=== PATIENT | male | born 1960 | race African-American/Black ===

== ENCOUNTER → 2016-12-30 | Outpatient (CLI) | payer BC | LOC: COL.RAD 11:01 | DX: K59.8 Other specified functional intestinal disorders (principal); N40.0 Benign prostatic hyperplasia without lower urinary tract symptoms | CPT/HCPCS: Q9967 ==

== ENCOUNTER → 2019-09-13 | Outpatient (CLI) | payer BC | LOC: COL.RAD 08:59 | DX: D40.11 Neoplasm of uncertain behavior of right testis (principal); N44.2 Benign cyst of testis ==

== ENCOUNTER 2021-04-23 10:58 | Inpatient (IN) | payer BC ==
[~2021-04-23] VITALS: Ht 177.8 cm; Wt 78.2 kg
[2021-04-23 11:58] LABS: COLLECTION METHOD CLEAN CATCH
[2021-04-23 12:02] LABS: BASO % 0.2 % (0.0-2.0); GRAN # 8.7 K/mm3 (1.4-6.5); GRAN % 87.5 % (42.2-75.2); HEMATOCRIT 37.1 % (42.0-52.0); HEMOGLOBIN 12.2 g/dl (13.5-18.0); LYMPH # 0.9 K/mm3 (1.2-3.4); LYMPH % 8.7 % (20.0-51.0); MEAN CELL VOLUME 92 fl (80.0-100.0); MEAN CORPUSCULAR HEMOGLOBIN 30 pg (27.0-31.0); MEAN CORPUSCULAR HGB CONC 33 g/dl (33.0-37.0); MEAN PLATELET VOLUME 10.8 fl (7.4-10.4); MONO # 0.3 K/mm3 (0.1-0.6); MONO % 3.3 % (1.7-9.3); PLATELET COUNT 274 K/mm3 (130-400); RED BLOOD COUNT 4.03 M/mm3 (4.20-5.60); REDCELL DISTRIBUTION WIDTH-CV 13.9 % (11.5-14.5)
[2021-04-23 12:09] LABS: MUCOUS Present /lpf; PH 5 (5-8); SQUAMOUS EPITHELIAL None Seen /hpf; URINE APPEARANCE Cloudy; URINE BACTERIA Rare /hpf; URINE BILIRUBIN Negative (NEGATIVE); URINE BLOOD 1+ (NEGATIVE); URINE COLOR Yellow; URINE GLUCOSE Negative (NEGATIVE); URINE KETONE Negative (NEGATIVE); URINE LEUKOCYTE ESTERASE Negative (NEGATIVE); URINE NITRATE Negative (NEGATIVE); URINE PROTEIN(semi-quant) 1+ (NEGATIVE); URINE RBC None Seen /hpf; URINE UROBILINOGEN Negative (NEGATIVE)
[2021-04-23 12:23] LABS: ALBUMIN 4.1 gm/dL (3.5-5.0); CALCIUM 9.9 mg/dL (8.4-10.2); CREATININE, serum 1.24 mg/dL (0.72-1.25); TOTAL PROTEIN 7.5 gm/dL (6.2-8.1)
[2021-04-23 17:00] VITALS: BP 119/63; PULSE 102; TEMP 99.1
--- NOTE | 2021-04-23 17:00 | NUR ---
PATIENT IS ADMITED INTO ROOM 344 FROM ER. A&O. NOTED TEMP OF 99.1 AND HR IN THE LOW TO MID 100'S. ALL OTHER VSS. PATIENT REPORTS HE FEELS A LOT BETTER AFTER IV FLUIDS & ABX INTO RIGHT AC IV. PATIENT REPORTS FEVER/CHILLS/DIARRHEA ON ADMIT TO ER. 2-3 LOOST STOOLS, SEE ORDERS FOR STOOL SAMPLE. BLOOD CULTURES PENDING. IV BOLUS LR STARTED PER SEPSIS PROTOCOL. ALSO REPLACING ELECTROLYTES. CT SHOWED INFLAMED BOWL, UNKNOWN GI SOURCE OF SEPSIS. HEAD TO TOE ASSESSMENT COMPLETE. PATIENT'S SISTER AT BEDSIDE. ORIENTED TO ROOM. CALL LIGHT IN REACH.
[2021-04-23 19:04] VITALS: BP 119/66; PULSE 104; TEMP 98.4
--- NOTE | 2021-04-23 20:20 | NUR ---
Pt. sitting up in bed at this time. Pt. is A&OX3, assessment complete. IV to rt. ac patent, IV fluids infusing per orders. Pt. denies pain or other needs, call light within reach.
[2021-04-23 23:13] VITALS: BP 130/68; PULSE 96; TEMP 98.1
[2021-04-24 02:30] LABS: CALCIUM 9.1 mg/dL (8.4-10.2); CREATININE, serum 1.29 mg/dL (0.72-1.25); POTASSIUM 3.7 mmol/L (3.5-4.5)
[2021-04-24 03:16] VITALS: BP 134/73; PULSE 92; TEMP 98.3
--- NOTE | 2021-04-24 05:59 | NUR ---
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 Pharmacy confirmed ok to give together.
[2021-04-24 06:46] LABS: MEAN CELL VOLUME 89 fl (80.0-100.0); MEAN CORPUSCULAR HGB CONC 34 g/dl (33.0-37.0); MEAN PLATELET VOLUME 11.6 fl (7.4-10.4); PLATELET COUNT 208 K/mm3 (130-400); RED BLOOD COUNT 3.16 M/mm3 (4.20-5.60); REDCELL DISTRIBUTION WIDTH-CV 14.3 % (11.5-14.5)
[2021-04-24 06:53] LABS: HEMATOCRIT 28.1 % (42.0-52.0); MEAN CORPUSCULAR HEMOGLOBIN 30 pg (27.0-31.0)
[2021-04-24 06:54] LABS: HEMOGLOBIN 9.5 g/dl (13.5-18.0)
[2021-04-24 07:04] LABS: CALCIUM 9.4 mg/dL (8.4-10.2); CREATININE, serum 1.16 mg/dL (0.72-1.25); POTASSIUM 3.4 mmol/L (3.5-4.5)
[2021-04-24 07:35] VITALS: BP 121/68; PULSE 90; TEMP 95.6
[2021-04-24 07:40] LABS: BAND 42 % (0-10); LYMPHOCYTE 11 % (20.0-51.0); NEUTROPHILS 44 % (42.0-75.2); PLATELET ESTIMATE NORMAL (NORMAL)
--- NOTE | 2021-04-24 07:44 | NUR ---
Patient complains of no pain. Shift assessment completed. Abdomen distended and firm. Patient states he had small BM. AP 90. Lung sound diminished at bases. Ciprofoxacin infusing via IV 100 mls @ 100 mls/hr. IV site to right lower arm shows no signs of redness or swelling. Call light is within reach.
[2021-04-24 09:03] LABS: HEMATOCRIT 28.1 % (42.0-52.0); HEMOGLOBIN 9.5 g/dl (13.5-18.0)
--- NOTE | 2021-04-24 10:35 | NUR ---
Initial visit; Patient thanked [employer] for looking in on him and offering God's blessings and prayer. [employer] will keep patient in her prayers.
[2021-04-24 10:52] VITALS: BP 141/74; PULSE 90; TEMP 98.5
--- NOTE | 2021-04-24 14:50 | NUR ---
SW met with patient to determine d/c plan. Patient reports he is single and lives by himself in [place]. PCP is Dr. Evelyn Momin and he would get his medications from [facility] but at this time he only takes over the counter vitamins. Patient reports being fully indep prior to this event and he has no DME's or 02 needs. salesperson floor coverings is his sister, Deborah, who lives in [place] ([phone]). He does not have an MPOA but would like to look at the form. TASNEEM provided this. D/C Plan: Home
[2021-04-24] MEDS ORDERED: B COMPLEX & B121 TAB (14:53)
[2021-04-24] MEDS ORDERED: EZFE 200200 MG PO (14:53)
[2021-04-24 15:48] VITALS: BP 147/80; PULSE 102; TEMP 101
[2021-04-24] MEDS ORDERED: SLOW FE142 MG PO (16:19)
--- NOTE | 2021-04-24 19:09 | NUR ---
Patient doing well throughout the day, up in room independently with steady gait. Temp this afternoon, tylenol given per orders. Patient states mild discomfort to abdomen though the day, refuses pain meds at this time. Denies additional needs at this time. Will report off to saddle and harness maker.
[2021-04-24 19:10] VITALS: BP 159/93; PULSE 94; TEMP 99.7
--- NOTE | 2021-04-24 20:05 | NUR ---
Pt. sitting up in bed at this time. Pt. is A&OX3, assessment complete. INT to rt. ac patent. Pt. reports abd pain at a 4 on pain scale, gave Tylenol. Pt. denies further needs, call light within reach.
[2021-04-24 22:18] VITALS: BP 147/84; PULSE 80; TEMP 98.1
[2021-04-25 04:08] VITALS: BP 134/81; PULSE 82; TEMP 98.5
[2021-04-25 06:51] LABS: MEAN CELL VOLUME 89 fl (80.0-100.0); MEAN CORPUSCULAR HGB CONC 34 g/dl (33.0-37.0); MEAN PLATELET VOLUME 11.1 fl (7.4-10.4); PLATELET COUNT 206 K/mm3 (130-400); RED BLOOD COUNT 3.05 M/mm3 (4.20-5.60); REDCELL DISTRIBUTION WIDTH-CV 14.5 % (11.5-14.5)
[2021-04-25 06:55] LABS: HEMATOCRIT 27.2 % (42.0-52.0); HEMOGLOBIN 9.2 g/dl (13.5-18.0); MEAN CORPUSCULAR HEMOGLOBIN 30 pg (27.0-31.0)
--- NOTE | 2021-04-25 07:08 | NUR ---
Sitting up in bed. No c/o pain. Ciprofloxacin infusing 200 mg/100 ml in right brachial. No redness or swelling at site. Shift assessment complete. Patient voided dark yellow urine. Encouraged to push fluids. Call light within reach.
[2021-04-25 07:19] VITALS: BP 148/80; PULSE 82; TEMP 98.5
[2021-04-25 07:39] LABS: EOSINOPHIL 1 % (0-4); HYPOCHROMIA 1+; LYMPHOCYTE 17 % (20.0-51.0); NEUTROPHILS 77 % (42.0-75.2)
[2021-04-25 07:41] LABS: CALCIUM 9.6 mg/dL (8.4-10.2); CREATININE, serum 1.06 mg/dL (0.72-1.25); POTASSIUM 3.3 mmol/L (3.5-4.5)
--- NOTE | 2021-04-25 10:00 | NUR ---
pt doing well this morning. He has been up and took a shower. Pt reports overall feeling well. States that his stomach did hurt some after eating, but that Ricardo told him that is normal. He did state that it has since gone away. Pt is independent in the room. has rounded, potential discharge this afternoon if fever free and labs ok
[2021-04-25 10:40] VITALS: BP 143/83; PULSE 90; TEMP 99.1
[2021-04-25] MEDS ORDERED: FLAGYL500 MG PO (10:47)
[2021-04-25] MEDS ORDERED: CIPRO 500MG TA500 MG PO (10:48)
[2021-04-25] MEDS ORDERED: K-DUR20 MEQ PO (10:48)
[2021-04-25 11:28] VITALS: BP 130/77; PULSE 87; TEMP 98.7
--- NOTE | 2021-04-25 13:06 | NUR ---
Follow-up visit; Patient doing well and thanked [employer] for looking in on him again this morning. [employer] continues to keep patient in her prayers.
[2021-04-25 15:52] VITALS: BP 150/84; PULSE 84; TEMP 98.8
--- NOTE | 2021-04-25 16:39 | NUR ---
Pt has continued to do okay. Complains of some pain after eating. Reports that he is still having loose stool. Pt is aware that he will be staying the night. Continue to replace Potassium. Potassium 60 meq being given over 4 hours per pharmacy
[2021-04-25 19:46] VITALS: BP 146/81; PULSE 83; TEMP 99.2
--- NOTE | 2021-04-25 19:51 | NUR ---
REPORTS STILL HAVING LOOSE STOOL "LIKE WATERY" BUT REPORTS NOT HAVING FREQUENT STOOLS PASSED. DENIES ABD PAIN AFTER EATING SUPPER MEAL AT THIS TIME.
--- NOTE | 2021-04-25 20:00 | NUR ---
PATIENT REPORTS PASSING FLATUS WHEN TOILETING/PASSING WATERY STOOL. DENIES NAUSEA AFTER EATING LATE SUPPER MEAL, DENIES ABD PAIN AFTER EATING.
[2021-04-26 00:13] VITALS: BP 148/94; PULSE 78; TEMP 99
[2021-04-26 04:58] VITALS: BP 148/82; PULSE 78; TEMP 98.6
--- NOTE | 2021-04-26 06:58 | NUR ---
Pt doing well this morning, no needs or complaints verbalized, call light within reach
[2021-04-26 07:18] LABS: BASO % 0.3 % (0.0-2.0); EOS # 0.1 K/mm3 (0.0-0.7); EOS % 1.8 % (0-4.0); GRAN # 5.7 K/mm3 (1.4-6.5); GRAN % 72.3 % (42.2-75.2); LYMPH # 1.4 K/mm3 (1.2-3.4); LYMPH % 17.4 % (20.0-51.0); MEAN CELL VOLUME 93 fl (80.0-100.0); MEAN CORPUSCULAR HGB CONC 33 g/dl (33.0-37.0); MEAN PLATELET VOLUME 11.3 fl (7.4-10.4); MONO # 0.6 K/mm3 (0.1-0.6); MONO % 7.7 % (1.7-9.3); PLATELET COUNT 229 K/mm3 (130-400); RED BLOOD COUNT 3.19 M/mm3 (4.20-5.60); REDCELL DISTRIBUTION WIDTH-CV 14.5 % (11.5-14.5)
[2021-04-26 07:20] LABS: HEMATOCRIT 29.7 % (42.0-52.0); HEMOGLOBIN 9.7 g/dl (13.5-18.0); MEAN CORPUSCULAR HEMOGLOBIN 30 pg (27.0-31.0)
[2021-04-26 07:24] VITALS: BP 154/84; PULSE 73; TEMP 98
--- NOTE | 2021-04-26 07:25 | NUR ---
CHANGE OF SHIFT REPORT GIVEN TO DAY SHIFT NURSE, OLESYA AVERY.
[2021-04-26 07:51] LABS: CALCIUM 9.7 mg/dL (8.4-10.2); CREATININE, serum 1.08 mg/dL (0.72-1.25); POTASSIUM 3.4 mmol/L (3.5-4.5)
--- NOTE | 2021-04-26 09:15 | NUR ---
Pt doing well, reports he has not had any more abd pain. Informed him of his potassium level and getting it replaced. Pt is hopeful to get to go home today. No other needs verbalized, call light within reach
[2021-04-26 11:41] VITALS: BP 145/77; PULSE 86; TEMP 98.9
--- NOTE | 2021-04-26 12:05 | NUR ---
Reviewed discharge instructions with pt to include follow up appointment, lab work and prescriptions. Pt verbalized understanding. INT removed from left wrist. Pt awaiting on his sister to arrive to pick him up
--- NOTE | 2021-04-26 12:40 | NUR ---
Reviewed discharge again with sister per request. All questions answered and pt escorted out via wheelchair
== END 2021-04-26 12:41 | disposition home or self-care (01) | DRG 872 ==
LOC: COL.ER 10:58 → SURG 16:10
PROVIDERS: Physician Assistant; ADMIT Family Medicine
DX: A41.9 Sepsis, unspecified organism (principal); E87.0 Hyperosmolality and hypernatremia; R65.20 Severe sepsis without septic shock; I10 Essential (primary) hypertension; D64.9 Anemia, unspecified; E87.6 Hypokalemia; E83.42 Hypomagnesemia; K52.9 Noninfective gastroenteritis and colitis, unspecified; E83.39 Other disorders of phosphorus metabolism; Z20.822 Contact with and (suspected) exposure to COVID-19; Z87.442 Personal history of urinary calculi
CPT/HCPCS: 99223-AI; 99232-AI; 99233-AI; 99239; J0744; J1885; J2270; J2405; J3475; J7030; J7050; J7070; J7120; Q9967

== ENCOUNTER 2023-06-05 12:48 | Emergency (ER) | payer OTHER ==
[~2023-06-05] VITALS: Ht 177.8 cm; Wt 79.5 kg
[~2023-06-05 12:48] MED LIST: ASPIRIN 32325 MG/TAB PO; B COMPLEX & B121 TAB; CIPRO 500MG TA500 MG PO; DULCOLAX STOOL100 MG PO; EZFE 200200 MG PO; FLAGYL500 MG PO; K-DUR20 MEQ PO; LIPITOR 40MG TA40 MG PO; PLAVIX 75MG TAB75 MG PO; PRINIVIL20 MG PO; SLOW FE142 MG PO; VITAMIN D31000 I1 PO; ZYRTEC 10MG10 MG PO
[2023-06-05 13:17] LABS: BASO % 0.3 % (0.0-2.0); EOS % 0.6 % (0.0-4.0); GRAN # 2.9 K/mm3 (1.4-6.5); GRAN % 41.8 % (42.2-75.2); HEMOGLOBIN 10.3 g/dl (13.5-18.0); LYMPH # 3.1 K/mm3 (1.2-3.4); LYMPH % 45.9 % (20.0-51.0); MEAN CELL VOLUME 94 fl (80.0-100.0); MEAN CORPUSCULAR HEMOGLOBIN 31 pg (27-31); MEAN CORPUSCULAR HGB CONC 33 g/dl (33.0-37.0); MEAN PLATELET VOLUME 10.8 fl (7.4-10.4); MONO # 0.8 K/mm3 (0.1-0.6); MONO % 11.1 % (1.7-9.3); PLATELET COUNT 276 K/mm3 (130-400); RED BLOOD COUNT 3.36 M/mm3 (4.20-5.60); REDCELL DISTRIBUTION WIDTH-CV 13.4 % (11.5-14.5)
[2023-06-05 13:32] LABS: HEMATOCRIT 31.4 % (42.0-52.0)
[2023-06-05 13:34] LABS: PROTHROMBIN TIME 10.4 SECONDS (9.7-12.8)
[2023-06-05 13:40] LABS: ALBUMIN 3.8 gm/dL (3.4-4.8); BILIRUBIN,TOTAL 1.2 mg/dL (0.2-1.2); CALCIUM 9.9 mg/dL (8.4-10.2); CREATININE, serum 1.41 mg/dL (0.72-1.25); POTASSIUM 3.5 mmol/L (3.5-4.5); TOTAL PROTEIN 6.7 gm/dL (6.2-8.1)
[2023-06-05 17:19] VITALS: BP 139/86; PULSE 79; TEMP 98.4
== END 2023-06-05 17:19 | disposition home or self-care (01) ==
LOC: COL.ER 12:48
PROVIDERS: Emergency Medicine
DX: G45.9 Transient cerebral ischemic attack, unspecified (principal); Z79.82 Long term (current) use of aspirin; Z79.02 Long term (current) use of antithrombotics/antiplatelets
CPT/HCPCS: J7030; Q9967